=== PATIENT | female | born 1985 | race Caucasian/White ===

== ENCOUNTER 2019-08-13 05:34 | Observation (INO) ==
[2019-08-13] MEDS ORDERED: NORMAL SALINE 1,000 ML IV ONE (05:40)
--- NOTE | 2019-08-13 05:44 | ERNOTE ---
Psychological HPI - General Source: Reports: patient Exam Limitations: Reports: no limitations - Immun/Allergies/Home Medications Allergies/Adverse Reactions: Allergies meperidine HCl [From Demerol] Allergy (Severe, Verified 08/13/19 06:13) Anaphylaxis sulfamethoxazole [From Bactrim] Allergy (Intermediate, Verified 08/13/19 06:13) Hives trimethoprim [From Bactrim] Allergy (Intermediate, Verified 08/13/19 06:13) Hives Home Medications: HOME MEDICATIONS Dicyclomine HCl [Bentyl] 20 mg PO HS 08/13/19 [Last Taken Unknown] Doxycycline Hyclate [Morgidox] 100 mg PO BID 08/13/19 [Last Taken Unknown] Ibuprofen [Motrin] 800 mg PO BID 08/13/19 [Last Taken Unknown] Mirtazapine 45 mg PO HS 08/13/19 [Last Taken Unknown] Pregabalin [Lyrica] 75 mg PO BID 08/13/19 [Last Taken Unknown] Sertraline HCl [Zoloft] 50 mg PO DAILY 08/13/19 [Last Taken Unknown] diphenhydrAMINE HCL [Benadryl] 50 mg PO HS 08/13/19 [Last Taken Unknown] - History of Present Illness Narrative: Patient presents accompanied by a friend with report of overdose of 450 mg of mirtazapine. She also made multiple superficial cuts to her left arm on her neck. Patient is drowsy but able to ambulate with some assistance and answer questions. Time Seen by Provider: 08/13/19 05:37 Arrived by: Reports: private car Onset/duration: Reports: sudden onset Intent: Reports: wants to escape Mechanism: Reports: overdose, incision Medical History (Updated 08/13/19 @ 07:25 by Jeanmarie Pederson DO) Anxiety Depressed bipolar I disorder Surgical History: Surgical History (Updated 08/13/19 @ 05:44 by Jeanmarie Pederson DO) History of hysterectomy Family History: Family History (Updated 08/13/19 @ 06:12 by Elaina Brown RN) Other No pertinent family history Social History: (Last Updated 08/13/19 @ 06:12 by Elaina Brown RN) Tobacco: Smoking Status: Current every day smoker Smoking cigarettes per day: 10 Alcohol: alcohol intake: never Substance Use: substance use type: does not use Psychological Exam - Exam General Appearance: Present: wd/wn, lethargic Head Exam: Present: normal inspection, no evidence of injury Neurological: Present: alert, depressed affect, flat Thoughts/Hallucinations: Present: no apparent hallucination Behavior/Eye Contact/Speech: Present: cooperative, decreased rate of speech Ears, Nose, Throat: Present: normal ENT inspection Neck: Present: supple, full range of motion, other - mulitple superficial lacerations Respiratory: Present: no respiratory distress, no accessory muscle use Extremity Exam: Present: normal except - - Multiple lacerations to left arm Skin Exam: Present: other - Lacerations to neck and left arm as above Lymphatic Exam: Present: no adenopathy Progress - Results and Orders Patient's Lab Results:: I have reviewed the patient's lab results. Results and Orders: Laboratory Tests 08/13/19 08/13/19 08/13/19 05:52 05:52 06:24 WBC 10.9 H Hgb 13.1 Hct 39.0 Plt Count 324 Sodium 140 Potassium 3.3 L Chloride 106 Carbon Dioxide 24.1 BUN 9 Creatinine 0.87 Random Glucose 90 Calcium 8.0 Total Bilirubin 0.5 AST 20 ALT 24 Alkaline Phosphatase 62 Total Protein 6.9 Albumin 3.4 TSH 1.969 Urine Color Pale yellow Urine Appearance Clear Urine pH 6.5 Ur Specific [place] <=1.005 Urine Protein Negative Urine Glucose (UA) Negative Urine Ketones Negative Urine Blood 25 H Urine Nitrate Negative Urine Bilirubin Negative Urine Urobilinogen Normal Ur Leukocyte Esterase Negative Urine RBC None seen Urine WBC None seen Ur Epithelial Cells 0-5 Amorphous Sediment Few - 1+ Urine Bacteria 1+ H Urine Culture Comments No culture indicated Salicylates 4.8 Urine Opiates Screen Acetaminophen Less than 0.2 L Barbiturate Screen Ur Phencyclidine Scrn Urine Amphetamine U Benzodiazepines Scrn Urine Cocaine Screen Urine Marijuana (THC) Ethyl Alcohol Less than 3.0 08/13/19 06:24 WBC Hgb Hct Plt Count Sodium Potassium Chloride Carbon Dioxide BUN Creatinine Random Glucose Calcium Total Bilirubin AST ALT Alkaline Phosphatase Total Protein Albumin TSH Urine Color Urine Appearance Urine pH Ur Specific [place] Urine Protein Urine Glucose (UA) Urine Ketones Urine Blood Urine Nitrate Urine Bilirubin Urine Urobilinogen Ur Leukocyte Esterase Urine RBC Urine WBC Ur Epithelial Cells Amorphous Sediment Urine Bacteria Urine Culture Comments Salicylates Urine Opiates Screen Negative Acetaminophen Barbiturate Screen Negative Ur Phencyclidine Scrn Negative Urine Amphetamine Negative U Benzodiazepines Scrn Positive H Urine Cocaine Screen Negative Urine Marijuana (THC) Negative Ethyl Alcohol - Vital Signs Patient's Vital Signs:: I have reviewed the patient's vital signs. - EKG EKG #1 EKG: NSR, no ST T wave changes EKG read: Interp. by me - Progress/Reassessment Progress Note-Subjective: 08/13/19 07:[address] Morales he agrees to admit the patient for telemetry and monitoring for her overdose. He asked for a psychiatry consult to be placed 08/13/19 07:46 I spoke with Yesi Arguelles and she agrees to consult she will see the patient on the unit. Time Seen by Provider: 08/13/19 05:37 Departure Clinical Impression: Overdose of tricyclic antidepressants Qualifiers: Encounter type: initial encounter Injury intent: intentional self-harm Qualified Code(s): T43.012A - Poisoning by tricyclic antidepressants, intentional self-harm, initial encounter - Departure Disposition: Still a patient Condition: Good
[2019-08-13 06:00] LABS: Hemoglobin 13.1 gm/dL (12.5-16.0); Mean Cell Volume 88.2 fl (78-100); Mean Corpuscular Hemoglobin 29.6 pg (27-31); Mean Corpuscular Hgb Conc 33.6 g/dl (32-36); Mean Platelet Volume 9.1 fl (8-12.5); Neutrophil # 6.9 K/mm3 (1.3-6.0); Neutrophil % 63.7 % (42-75.0); Platelet Count 324 K/mm3 (150-450); Red Blood Count 4.42 M/mm3 (4.2-5.4); Red Cell Distribution Width 12.1 % (11.5-14.0); White Blood Count 10.9 K/mm3 (4.0-10.5)
[2019-08-13 06:22] LABS: ALT 24 U/L (19-67); AST 20 U/L (0-48); Albumin * 3.4 gm/dl (3.4-5.0); Alkaline Phosphatase * 62 U/L (50-170); Anion Gap 13.2 mmol/L (6.8-13.8); BUN/Creatinine Ratio 10.3 (9.0-21.6); Bilirubin, Total 0.5 mg/dL (0.0-1.1); Blood Urea Nitrogen 9 mg/dL (3-23); Ca. Corrected For Albumin 8.2 mg/dL (8.4-10.2); Carbon Dioxide 24.1 mmol/L (24-32.6); Chloride 106 mmol/L (97-106); Glucose * 90 mg/dL (70-110); Potassium 3.3 mmol/L (3.4-4.6); Salicylate 4.8 mg/dL (2.8-20.0); Sodium 140 mmol/L (132-142); TSH * 1.969 uIU/mL (0.358-3.74); Total Protein 6.9 gm/dL (6.2-8.2)
[2019-08-13 06:25] LABS: Urine Bilirubin Negative (NEGATIVE); Urine Blood 25 /ul (NEGATIVE); Urine Ketone Negative (NEGATIVE); Urine Nitrite Negative (NEGATIVE); Urine Protein Negative (NEGATIVE); Urine Specific Gravity <=1.005 SP.GR. (1.005-1.010); Urine Urobilinogen Normal (NORMAL); Urine pH 6.5 pH (5.0-7.0)
[2019-08-13] MEDS ORDERED: DIPHTH,PERTUSS(ACELL),TET VAC 0.5 ML VIAL IM ONE (06:29)
[2019-08-13 06:35] LABS: Urine Appearance Clear (CLEAR); Urine Bacteria 1+; Urine Color Pale Yellow; Urine RBC None Seen /hpf (0-5); Urine WBC None Seen /hpf (0-5)
[2019-08-13 06:36] LABS: Urine Amorphous Sediment Few - 1+ (NONE-FEW)
[2019-08-13 06:39] LABS: Cocaine Ur Negative (NEGATIVE); Urine Barbiturate Negative (NEGATIVE); Urine Opiates Negative (NEGATIVE); Urine PCP Negative (NEGATIVE); Urine THC Negative (NEGATIVE)
[2019-08-13 06:40] LABS: Urine Benzodiazepines Positive (NEGATIVE)
--- NOTE | 2019-08-13 12:38 | HP ---
Chief Complaint - Chief Complaint Date of Service: 08/13/19 Time of Service: 12:05 Chief Complaint: suicide attempt, major depressive disorder, History of Present Illness: Yesi Tejada is a 34-year-old female who is presented to the emergency room per EMS following a suicide attempt with mirtazapine. She had taken reportedly 10 tablets at once. She has a history of major depressive disorder since age 14. 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 After taking the mirtazapine she called her girlfriend and told her what she had done and EMS was summoned. She then came to the hospital. She was somnolent on admission. I have seen her some 5 hours after admission and she is starting to wake up and is conversant and answers questions appropriately. She is in no distress this time of my exam. She has been placed in SCU and psych nursing is seeing her at this time. Her admission laboratory work is uneventful and her admission vital signs are normal and stable. Medical History (Updated 08/13/19 @ 10:38 by Rona Peraza RN) Lupus (systemic lupus erythematosus) Anxiety Depressed bipolar I disorder Surgical History: Surgical History (Updated 08/13/19 @ 05:44 by Jeanmarie Pederson DO) History of hysterectomy Family History: Family History (Updated 08/13/19 @ 06:12 by Ealina Brown RN) Other No pertinent family history Social History: (Last Updated 08/13/19 @ 10:17 by Rona Peraza RN) Social History: Marital status: Single lives independently: No household members: significant other number of children: 3 Tobacco: Smoking Status: Current every day smoker Smoking cigarettes per day: 10 Alcohol: alcohol intake: never Substance Use: substance use type: does not use Review Of Systems (GEN) - Review of Systems EENTM: Present: No Symptoms Reported Respiratory: Present: No Symptoms Reported Cardiac: Present: No Symptoms Reported Abdominal: Present: No Symptoms Reported Genitourinary: Present: No Symptoms Reported Musculoskeletal: Present: No Symptoms Reported Neurological: Present: No Symptoms Reported Skin: Present: Other - Multiple superficial scratches to the forearms arms and neck. There is some dried blood on the arms but there are no deep lacerations needing repair. Endocrine: Present: No Symptoms Reported Immunizations: IMMUNIZATION HX Immunizations Up to Date No History of Influenza Vaccine No Hx Pneumococcal Vaccination No Allergies/Adverse Reactions: Allergies Allergy/AdvReac Type Severity Reaction Status Date / Time meperidine HCl [From Demerol] Allergy Severe Anaphylaxis Verified 08/13/19 10:18 sulfamethoxazole Allergy Intermediate Hives Verified 08/13/19 10:18 [From Bactrim] trimethoprim [From Bactrim] Allergy Intermediate Hives Verified 08/13/19 10:18 Home Medications: HOME MEDICATIONS ALPRAZolam [Xanax] 1 mg PO TID PRN 08/13/19 [Last Taken Unknown] Cyclobenzaprine HCl [Flexeril] 10 mg PO TID PRN 08/13/19 [Last Taken Unknown] Dicyclomine HCl [Bentyl] 20 mg PO HS 08/13/19 [Last Taken Unknown] Doxycycline Hyclate [Vibratab] 100 mg PO BID 08/13/19 [Last Taken 08/12/19 19:00] Ibuprofen [Motrin] 800 mg PO Q4H PRN 08/13/19 [Last Taken Unknown] Lurasidone HCl [Latuda] 20 mg PO DAILY 08/13/19 [Last Taken Unknown] Mirtazapine 45 mg PO HS 08/13/19 [Last Taken Unknown] Ondansetron [Zofran Odt] 8 mg PO Q8H PRN 08/13/19 [Last Taken Unknown] Pregabalin [Lyrica] 75 mg PO BID 08/13/19 [Last Taken Unknown] SUMAtriptan SUCCINATE [Imitrex] 6 mg SQ BID PRN 08/13/19 [Last Taken Unknown] Sertraline HCl [Zoloft] 50 mg PO DAILY 08/13/19 [Last Taken Unknown] diphenhydrAMINE HCL [Benadryl] 50 mg PO HS PRN 08/13/19 [Last Taken Unknown] Exam - Exam Vital Signs: Vital Signs - Last Taken Temp 36.5 C 08/13/19 09:19 Pulse 84 08/13/19 12:00 Resp 12 08/13/19 12:00 BP 124/73 08/13/19 12:00 Pulse Ox 96 08/13/19 12:00 Constitutional: Present: Alert, Oriented x3, Cooperative, Well developed, Well nourished, Obese ENT Exam: Present: normal ENT inspection Eye Exam: bilateral eye: normal inspection, PERRL, EOMI Neck: Present: non-tender, full range of motion, supple, other - Multiple razor blade scratches to the neck bilaterally Back Exam: Present: normal inspection, no CVA tenderness, no vertebral tenderness Breasts: Present: Exam deferred Respiratory: Present: chest non-tender, lungs clear, normal breath sounds, no respiratory distress, no accessory muscle use Cardiovascular/Chest: Present: normal peripheral pulses Peripheral Pulses: carotid (R): 2+, carotid (L): 2+, radial (R): 2+, radial (L): 2+ Abdomen: Present: Normal bowel sounds, soft, nontender, nondistended, no rebound tenderness, no hepatospenomegaly, no masses /Rectal: Present: Exam deferred Extremity: Present: normal range of motion, non-tender, normal inspection, no pedal edema, no calf tenderness, normal capillary refill Skin Exam: Present: normal color, warm/dry Lymphatic: Present: no adenopathy Neurologic: Present: contact center director II-XII nml as tested, normal cerebellar test, no motor/sensory deficits, alert, depressed affect Appearance: Present: appropriate appearance, impaired insight Eye contact: Present: cooperative, good eye contact, normal speech Thoughts: Present: normal thought pattern, no apparent hallucination, other - Major and bipolar depression with self mutilating behavior.. Absent: normal mo od /affect Diagnostic Studies: Abnormal Lab Results 08/13/19 08/13/19 08/13/19 Range/Units 05:52 05:52 06:24 WBC 10.9 H (4.0-10.5) K/mm3 Immature Gran % (Auto) 0.50 H (0.001-0.429) % Immature Gran # (Auto) 0.05 H (0.000-0.0310) K/mm3 Neutrophils # 6.9 H (1.3-6.0) K/mm3 Potassium 3.3 L (3.4-4.6) mmol/L Calcium Adj for Albumin 8.2 L (8.4-10.2) mg/dL Urine Blood 25 H (NEGATIVE) /ul Urine Bacteria 1+ H (NONE) Acetaminophen Less than 0.2 L (10.0-30.0) mcg/mL U Benzodiazepines Scrn (NEGATIVE) 08/13/19 08/13/19 Range/Units 06:24 08:40 WBC (4.0-10.5) K/mm3 Immature Gran % (Auto) (0.001-0.429) % Immature Gran # (Auto) (0.000-0.0310) K/mm3 Neutrophils # (1.3-6.0) K/mm3 Potassium (3.4-4.6) mmol/L Calcium Adj for Albumin (8.4-10.2) mg/dL Urine Blood (NEGATIVE) /ul Urine Bacteria (NONE) Acetaminophen Less than 0.2 L (10.0-30.0) mcg/mL U Benzodiazepines Scrn Positive H (NEGATIVE) Laboratory Results WBC 10.9 K/mm3 (4.0-10.5) H 08/13/19 05:52 RBC 4.42 M/mm3 (4.2-5.4) 08/13/19 05:52 Hgb 13.1 gm/dL (12.5-16.0) 08/13/19 05:52 Hct 39.0 % (37.0-47.0) 08/13/19 05:52 MCV 88.2 fl (78-100) 08/13/19 05:52 MCH 29.6 pg (27-31) 08/13/19 05:52 MCHC 33.6 g/dl (32-36) 08/13/19 05:52 RDW 12.1 % (11.5-14.0) 08/13/19 05:52 Plt Count 324 K/mm3 (150-450) 08/13/19 05:52 MPV 9.1 fl (8-12.5) 08/13/19 05:52 Immature Gran % (Auto) 0.50 % (0.001-0.429) H 08/13/19 05:52 Immature Gran # (Auto) 0.05 K/mm3 (0.000-0.0310) H 08/13/19 05:52 63.7 % (42-75.0) 08/13/19 05:52 27.9 % (20-51) 08/13/19 05:52 6.5 % (0.0-9) 08/13/19 05:52 0.9 % (0.0-3.0) 08/13/19 05:52 0.5 % (0.0-1.0) 08/13/19 05:52 Nucleated RBC % 0.0 k/mm3 (0-1) 08/13/19 05:52 6.9 K/mm3 (1.3-6.0) H 08/13/19 05:52 3.03 k/mm3 (1.5-3.5) 08/13/19 05:52 0.7 k/mm3 (0.0-1.0) 08/13/19 05:52 0.1 k/mm3 (0.0-0.7) 08/13/19 05:52 Absolute Basophils 0.1 k/mm3 (0.0-0.1) 08/13/19 05:52 Sodium 140 mmol/L (132-142) 08/13/19 05:52 140 mmol/L (130-142) 08/13/19 05:52 Potassium 3.3 mmol/L (3.4-4.6) L 08/13/19 05:52 Chloride 106 mmol/L (97-106) 08/13/19 05:52 Carbon Dioxide 24.1 mmol/L (24-32.6) 08/13/19 05:52 13.2 mmol/L (6.8-13.8) 08/13/19 05:52 BUN 9 mg/dL (3-23) 08/13/19 05:52 0.87 mg/dL (0.4-1.4) 08/13/19 05:52 Est GFR (Non-Af Amer) 80 mL/min (60-130) 08/13/19 05:52 10.3 (9.0-21.6) 08/13/19 05:52 90 mg/dL (70-110) 08/13/19 05:52 Calcium 8.0 mg/dL (7.9-10.9) 08/13/19 05:52 Calcium Adj for Albumin 8.2 mg/dL (8.4-10.2) L 08/13/19 05:52 0.5 mg/dL (0.0-1.1) 08/13/19 05:52 AST 20 U/L (0-48) 08/13/19 05:52 ALT 24 U/L (19-67) 08/13/19 05:52 62 U/L (50-170) 08/13/19 05:52 6.9 gm/dL (6.2-8.2) 08/13/19 05:52 3.4 gm/dl (3.4-5.0) 08/13/19 05:52 TSH 1.969 uIU/mL (0.358-3.74) 08/13/19 05:52 Pale yellow 08/13/19 06:24 Clear (CLEAR) 08/13/19 06:24 6.5 pH (5.0-7.0) 08/13/19 06:24 Ur Specific [place] <=1.005 SP.GR. (1.005-1.010) 08/13/19 06:24 Negative mg/dL (NEGATIVE) 08/13/19 06:24 Negative mg/dL (NEGATIVE) 08/13/19 06:24 Negative mg/dL (NEGATIVE) 08/13/19 06:24 25 /ul (NEGATIVE) H 08/13/19 06:24 Negative (NEGATIVE) 08/13/19 06:24 Negative mg/dl (NEGATIVE) 08/13/19 06:24 Normal EU/dl (NORMAL) 08/13/19 06:24 Ur Leukocyte Esterase Negative /ul (NEGATIVE) 08/13/19 06:24 None seen /hpf (0-5) 08/13/19 06:24 None seen /hpf (0-5) 08/13/19 06:24 Ur Epithelial Cells 0-5 /hpf (0-5) 08/13/19 06:24 Amorphous Sediment Few - 1+ (NONE-FEW) 08/13/19 06:24 1+ (NONE) H 08/13/19 06:24 No culture indicated 08/13/19 06:24 Urine HCG, Qual Negative (NEGATIVE) 08/13/19 07:51 Salicylates 4.8 mg/dL (2.8-20.0) 08/13/19 05:52 Negative (NEGATIVE) 08/13/19 06:24 Acetaminophen Less than 0.2 mcg/mL (10.0-30.0) L 08/13/19 08:40 Negative (NEGATIVE) 08/13/19 06:24 Ur Phencyclidine Scrn Negative (NEGATIVE) 08/13/19 06:24 Urine Amphetamine Negative (NEGATIVE) 08/13/19 06:24 U Benzodiazepines Scrn Positive (NEGATIVE) H 08/13/19 06:24 Negative (NEGATIVE) 08/13/19 06:24 Negative (NEGATIVE) 08/13/19 06:24 Ethyl Alcohol Less than 3.0 mg/dL (0.0-10.0) 08/13/19 05:52 Assessment/Plan - Narrative Narrative: 1. Monitor in SCU through the day. 2. Hold all medications for now 3. Probable discharge to home this evening. 4. Psych is going to set up visits here and then [facility] for her. - Assessment/Plan (1) Suicide attempt Problem: Acute (2) Overdose Problem: Acute Qualifiers: Encounter type: initial encounter (3) Deliberate self-cutting Problem: Acute (4) Bipolar 2 disorder, major depressive episode Problem: Chronic (5) MDD (major depressive disorder) Problem: Acute Qualifiers: Major depression recurrence: recurrent Active/Remission status: currently active Major depression episode severity: severe Psychotic features: with psychotic features Qualified Code(s): F33.3 - Major depressive disorder, recurrent, severe with psychotic symptoms
[2019-08-13] MEDS ORDERED: ONDANSETRON 8 MG TAB.RAPDIS PO PRN (12:50)
[2019-08-13] MEDS ORDERED: SUMAtriptan SUCCINATE 6 MG/0.5 ML VIAL SC PRN (12:50)
[2019-08-13] MEDS ORDERED: IBUPROFEN 800 MG TABLET PO PRN (12:50)
[2019-08-13] MEDS ORDERED: DOXYCYCLINE HYCLATE 100 MG TABLET PO SCH ×2 (13:05→21:00)
--- NOTE | 2019-08-13 13:16 | CONS ---
- Reason for consultation (1) Overdose Date of Service: 08/13/19 HPI - General Date of Service: 08/13/19 Source: patient, family, RN/MD, RN notes reviewed Exam Limitations: no limitations - History of Present Illness Allergies/Adverse Reactions: Allergies meperidine HCl [From Demerol] Allergy (Severe, Verified 08/13/19 10:18) Anaphylaxis sulfamethoxazole [From Bactrim] Allergy (Intermediate, Verified 08/13/19 10:18) Hives trimethoprim [From Bactrim] Allergy (Intermediate, Verified 08/13/19 10:18) Hives Home Medications: Home Medications Medication Instructions Recorded Last Taken ALPRAZolam [Xanax] 1 mg PO TID PRN 08/13/19 Unknown Cyclobenzaprine HCl [Flexeril] 10 mg PO TID PRN 08/13/19 Unknown Dicyclomine HCl [Bentyl] 20 mg PO HS 08/13/19 Unknown Doxycycline Hyclate [Vibratab] 100 mg PO BID 08/13/19 08/12/19 19:00 Ibuprofen [Motrin] 800 mg PO Q4H PRN 08/13/19 Unknown Lurasidone HCl [Latuda] 20 mg PO DAILY 08/13/19 Unknown Mirtazapine 45 mg PO HS 08/13/19 Unknown Ondansetron [Zofran Odt] 8 mg PO Q8H PRN 08/13/19 Unknown Pregabalin [Lyrica] 75 mg PO BID 08/13/19 Unknown SUMAtriptan SUCCINATE [Imitrex] 6 mg SQ BID PRN 08/13/19 Unknown Sertraline HCl [Zoloft] 50 mg PO DAILY 08/13/19 Unknown diphenhydrAMINE HCL [Benadryl] 50 mg PO HS PRN 08/13/19 Unknown Procedures Application of splint (08/23/07) Laparoscopic lysis of peritoneal adhesions (01/13/09) Low cervical section (07/02/08) OTH UNILAT SALPINGO-OOPHORECTOMY (06/08/10) OTHER AND UNSPECIFIED VAGINAL HYSTERECTOMY (06/08/10) Other bilateral destruction or occlusion of fallopian tubes (07/02/08) Other monitoring (08/14/06) Other incision with drainage of skin and subcutaneous tissue (08/17/05) Other local excision or destruction of ovary (01/13/09) Tonsillectomy with adenoidectomy (10/22/02) Review of Systems - Review of Systems Generalized/Overall Review: Present: Fatigue Neurological: Present: Anxiety, Depressed, Emotional Problems Physical Examination - Exam Narrative: Patient seen with boyfriend. She states that PCP has her on Sertraline for past 2 years. States that it works better than other antidepressants that she has been on but depression has never completely resolved. States that she has had health issues, had the flu, had kidney stones then an infections, was confined to bed and became overwhelmed. Vancleve like she wanted to and took Remeron from an old prescription. Also has numerous superficial cuts to arm. States that she was immediately remorseful and called a friend in order to get help. Denies any current suicidal thoughts and states that she wants to go home. Boyfriend is supportive. Does endorse mood swings and irritability. Has some periods of time that she won't sleep for days then will "crash" for several days. Mood tends to cycle. Dad has bipolar disorder. Denies any past suicide attempts but has had suicidal thoughts in the past. Discussed S/S of major depression vs. bipolar depression. Will continue current medications and schedule her a new patient appointment in our psychiatric clinic. New patient packet given. Patient and boyfriend voice understanding. Suicide watch precautions can be discontinued at this time. Is cleared by psychiatry for discharge pending medical clearance. Vital Signs: Vital Signs - Last Taken Temp 36.5 C 08/13/19 09:19 Pulse 84 08/13/19 12:00 Resp 12 08/13/19 12:00 BP 124/73 08/13/19 12:00 Pulse Ox 96 08/13/19 12:00 O2 Oxygen Delivery Method Room Air Constitutional: Present: Alert, Oriented x3, Cooperative, No distress Appearance: Present: appropriate appearance, appropriate insight Eye contact: Present: cooperative, avoids eye contact Thoughts: Present: normal thought pattern, no apparent hallucination, visual hallucinations. Absent: delusions, paranoid - Results and Findings: Lab/Microbiology results last 24 hrs: Abnormal/Pending Laboratory Last 24 HRS 08/13/19 08/13/19 08/13/19 08:40 06:24 06:24 WBC Immature Gran % (Auto) Immature Gran # (Auto) Neutrophils # Potassium Calcium Adj for Albumin Urine Blood 25 H Urine Bacteria 1+ H Acetaminophen Less than 0.2 L U Benzodiazepines Scrn Positive H 08/13/19 08/13/19 05:52 05:52 WBC 10.9 H Immature Gran % (Auto) 0.50 H Immature Gran # (Auto) 0.05 H Neutrophils # 6.9 H Potassium 3.3 L Calcium Adj for Albumin 8.2 L Urine Blood Urine Bacteria Acetaminophen Less than 0.2 L U Benzodiazepines Scrn - Assessments/Findings (1) Overdose Problem: Acute Qualifiers: Encounter type: initial encounter
--- NOTE | 2019-08-13 16:41 | DS ---
(1) Suicide attempt Problem: Acute (2) Overdose Problem: Acute Qualifiers: Encounter type: initial encounter (3) Deliberate self-cutting Problem: Acute (4) Bipolar 2 disorder, major depressive episode Problem: Chronic (5) MDD (major depressive disorder) Problem: Chronic Qualifiers: Major depression recurrence: recurrent Active/Remission status: currently active Major depression episode severity: severe Psychotic features: with psychotic features Qualified Code(s): F33.3 - Major depressive disorder, recurrent, severe with psychotic symptoms Date of Discharge:: 08/13/19 Description of Stay: Yesi Tejada is a 34-year-old female who is presented to the emergency room per EMS following a suicide attempt with mirtazapine. She had taken reportedly 10 tablets at once. She has a history of major depressive disorder since age 14. 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 After taking the mirtazapine she called her girlfriend and told her what she had done and EMS was summoned. She then came to the hospital. She was somnolent on admission. I have seen her some 5 hours after admission and she is starting to wake up and is conversant and answers questions appropriately. She is in no distress this time of my exam. She has been placed in SCU and psych nursing is seeing her at this time. Her admission laboratory work is uneventful and her admission vital signs are normal and stable. This afternoon, she is stable alert and conversant. She still falls asleep easily but also arouses easily. She does not believe that she is a danger to herself any longer. I have encouraged her to seek help and she is says she is going to do that. She should follow-up with her primary care provider within the next 2 weeks. Procedures Performed: none Results and Findings: Lab Pending Results 08/13/19 05:52: WBC 10.9 H, RBC 4.42, Hgb 13.1, Hct 39.0, MCV 88.2, MCH 29.6, MCHC 33.6, RDW 12.1, Plt Count 324, MPV 9.1, Immature Gran % (Auto) 0.50 H, Immature Gran # (Auto) 0.05 H, Neutrophils % 63.7, Lymphocytes % 27.9, Monocytes % 6.5, Eosinophils % 0.9, Basophils % 0.5, Nucleated RBC % 0.0, Neutrophils # 6.9 H, Lymphocytes # 3.03, Monocytes # 0.7, Eosinophils # 0.1, Absolute Basophils 0.1 08/13/19 05:52: Sodium 140, Plasma Sodium 140, Potassium 3.3 L, Chloride 106, Carbon Dioxide 24.1, Anion Gap 13.2, BUN 9, Creatinine 0.87, Est GFR (Non-Af Amer) 80, BUN/Creatinine Ratio 10.3, Random Glucose 90, Calcium 8.0, Calcium Adj for Albumin 8.2 L, Total Bilirubin 0.5, AST 20, ALT 24, Alkaline Phosphatase 62, Total Protein 6.9, Albumin 3.4, TSH 1.969, Salicylates 4.8, Acetaminophen Less than 0.2 L, Ethyl Alcohol Less than 3.0 08/13/19 06:24: Urine Color Pale yellow, Urine Appearance Clear, Urine pH 6.5, Ur Specific [place] <=1.005, Urine Protein Negative, Urine Glucose (UA) Negative, Urine Ketones Negative, Urine Blood 25 H, Urine Nitrate Negative, Urine Bilirubin Negative, Urine Urobilinogen Normal, Ur Leukocyte Esterase Negative, Urine RBC None seen, Urine WBC None seen, Ur Epithelial Cells 0-5, Amorphous Sediment Few - 1+, Urine Bacteria 1+ H, Urine Culture Comments No culture indicated 08/13/19 06:24: Urine Opiates Screen Negative, Barbiturate Screen Negative, Ur Phencyclidine Scrn Negative, Urine Amphetamine Negative, U Benzodiazepines Scrn Positive H, Urine Cocaine Screen Negative, Urine Marijuana (THC) Negative 08/13/19 07:51: Urine HCG, Qual Negative 08/13/19 08:40: Acetaminophen Less than 0.2 L Discharge Location: Home Disposition: Home self-care Condition: Good Discharge Activity: Activity as tolerated Discharge Diet: General/regular food Referrals: Deb Hicks DO [Primary Care Provider] - Complete Home Medications List: Complete Home Medication List: ALPRAZolam [Xanax] 1 mg PO TID PRN 08/13/19 Cyclobenzaprine HCl [Flexeril] 10 mg PO TID PRN 08/13/19 Dicyclomine HCl [Bentyl] 20 mg PO HS 08/13/19 Doxycycline Hyclate [Vibratab] 100 mg PO BID 08/13/19 Ibuprofen [Motrin] 800 mg PO Q4H PRN 08/13/19 Lurasidone HCl [Latuda] 20 mg PO DAILY 08/13/19 Mirtazapine 45 mg PO HS 08/13/19 Ondansetron [Zofran Odt] 8 mg PO Q8H PRN 08/13/19 Pregabalin [Lyrica] 75 mg PO BID 08/13/19 SUMAtriptan SUCCINATE [Imitrex] 6 mg SQ BID PRN 08/13/19 Sertraline HCl [Zoloft] 50 mg PO DAILY 08/13/19 diphenhydrAMINE HCL [Benadryl] 50 mg PO HS PRN 08/13/19
[2019-08-13 17:14] VITALS: BP 124/77
== END 2019-08-13 17:15 | disposition home or self-care (01) ==
LOC: SCU 05:34 → ER 05:34 → SCU 08:25
PROVIDERS: ADMIT Family Medicine; ATTEND Family Medicine
CPT/HCPCS: 36415; 80050; 80307; 80329; 81001; 84703; 90715; 93005; 99285; G0378; G0480